=== PATIENT | female | born 1955 | race Caucasian/White ===

== ENCOUNTER → 2020-07-29 | Outpatient (CLI) | payer BC ==
--- NOTE | 2020-07-29 12:02 | BD ---
EXAMINATION TYPE: Axial Bone Density DATE OF EXAM: 07/29/2020 COMPARISON: NONE CLINICAL HISTORY: Postmenopausal female. Height: 64.5 IN Weight: 204 LBS RISK FACTORS HISTORY OF: Active: YES Diet low in dairy products/other sources of calcium: YES Postmenopausal woman: AGE 49 Take estrogen and/or progesterone medications: NOT NOW How long: TOOK CONTROL FOR 5 YEARS MEDICATIONS: Additional Medications: MULTI VIT, METFORMIN, AMARYL, CRESTOR, HYGROTON, JARDIAN(DIABETES MED) EXAM MEASUREMENTS: Bone mineral densitometry was performed using the [employer]. Bone mineral density as measured about the Lumbar spine is: ----- L1-L4(G/cm2): 1.509 T Score Values are as follows: ----- L2: 1.9 ----- L3: 3.8 ----- L4: 2.9 ----- L1-L4: 2.7 Bone mineral density BASELINE Bone mineral density about the R hip (g/cm2): 1.175 Bone mineral density about the L hip (g/cm2): 1.098 T Score values are as follows: -----R Neck: 1.0 -----L Neck: 0.4 -----R Total: 2.4 -----L Total: 2.0 Bone mineral density BASELINE IMPRESSION: Osteopenia (T Score between -2.5 and -1). There is slightly increased risk of fracture and the patient may be considered for treatment. Re-Screen 2-5 years. NOTE: T-SCORE=SD OF THE YOUNG ADULT MEAN.
--- NOTE | 2020-07-29 14:23 | MM ---
Reason for exam: screening (asymptomatic). Last mammogram was performed 1 year and 4 months ago. History: Patient is postmenopausal. Family history of breast cancer in mother at age 57 and breast cancer in maternal aunt at age 57. Benign excisional biopsy of the right breast. Took hormonal contraceptives for 5 years. Physical Findings: A clinical breast exam by your physician is recommended on an annual basis and results should be correlated with mammographic findings. MG 3D Screening Mammo W/Cad Bilateral CC and MLO view(s) were taken. Prior study comparison: April 11, 2019, mammogram, performed at [facility]. July 12, 2018, mammogram, performed at [facility]. April 12, 2018, mammogram, performed at [facility]. March 13, 2018, mammogram, performed at [facility]. There are scattered fibroglandular densities. There are benign appearing round calcifications bilaterally. Previous mammotome biopsy in the right breast at distortion right lower inner quadrant. 3mm group of indistinct calcifications in the left breast slight inner middle depth on MLO 42/87. This finding is changed when compared with previous exams. ASSESSMENT: Incomplete: need additional imaging evaluation, BI-RAD 0 RECOMMENDATION: Special view mammogram of the left breast. [facility] will attempt to contact patient to return for supplemental views.
== END | disposition home or self-care (01) ==
LOC: RADMAMWWP 07:53
PROVIDERS: ATTEND Obstetrics & Gynecology
DX: Z12.31 Encounter for screening mammogram for malignant neoplasm of breast (principal); Z13.820 Encounter for screening for osteoporosis; Z78.0 Asymptomatic menopausal state
CPT/HCPCS: 77063; 77067; 77080

== ENCOUNTER → 2020-08-05 | Outpatient (CLI) | payer BC ==
--- NOTE | 2020-08-06 14:42 | MM ---
Reason for exam: additional evaluation requested from abnormal screening. Last mammogram was performed less than 1 month ago. History: Patient is postmenopausal. Family history of breast cancer in mother at age 57 and breast cancer in maternal aunt at age 57. Benign excisional biopsy of the right breast, 2018. Took hormonal contraceptives for 5 years. Physical Findings: Nurse did not find any significant physical abnormalities on exam. MG 3D Work Up W/Cad LT CC with magnification, LM with magnification, and LM view(s) were taken of the left breast. Prior study comparison: July 29, 2020, bilateral MG 3d screening mammo w/cad. April 11, 2019, mammogram, performed at [facility]. There are scattered fibroglandular densities. There is a 3mm grouping of fine heterogeneous calcifications left upper inner breast. These results were verbally communicated with the patient and result sheet given to the patient on 08/05/20. ASSESSMENT: Suspicious, BI-RAD 4 RECOMMENDATION: Stereotactic core biopsy of the left breast. Called Dr. Arias's office with mammographic findings and has scheduled an appointment for the patient for 08/27/20 at 12:[address] Hernandez. Biopsy scheduled for 08/28/20 at 8:00. PRELIMINARY REPORT CALLED AND FAXED TO DR. HERNANDEZ ON 08/06/20.
== END | disposition home or self-care (01) ==
LOC: RADMAMWWP 08:56
PROVIDERS: ATTEND Obstetrics & Gynecology
DX: R92.1 Mammographic calcification found on diagnostic imaging of breast (principal); Z78.0 Asymptomatic menopausal state; Z80.3 Family history of malignant neoplasm of breast
CPT/HCPCS: 77061; 77065

== ENCOUNTER → 2020-08-27 | Outpatient (CLI) | payer BC ==
[2020-08-27 12:14] VITALS: BP 139/83; PULSE 76; RESP 18; TEMP 98.6
--- NOTE | 2020-08-27 12:47 | P.GSHP ---
History of Present Illness H&P Date: 08/27/20 Chief Complaint: Abnormal left breast mammogram Shannon is a 64 -year-old white female seen in consultation for Dr. Otero regarding a mammographic abnormality in her left breast. This was a routine screening mammogram. The patient does not feel any lumps masses or nodules in either breast. She is not complaining of any recent breast trauma or infection. She had right breast core biopsy done in [place] three years ago which was benign. The patient has had genetic testing done in the past secondary to her mother having had breast cancer and she was told her genetic testing was negative. This was done approximately 3 years ago. Caffiene: pop/iced tea daily nicotine: none chocolate: weekly hormones: BCP: 5 years in past none now Family History: mother: breast cancer dx. at 57 breast cancer; colon cancer in 80's maternal aunt: of breast cancer at 57 maternal aunts (2): cervical cancer maternal uncle: lung cancer Hormonal History: menarche: 13 , breast fed: yes, age at first : 28 menopause: 51 BCP: 5 years hormones: none Surgical history: Cholecystectomy Medical history: Diabetes high cholesterol Osteopenia Social history: Nicotine: Negative alcohol: Negative Drugs: none - Constitutional Constitutional: Denies chills, Denies fever - EENT Comment: bilateral cataracts Eyes: denies blurred vision Ears: deny: decreased hearing, tinnitus Ears, nose, mouth and throat: Denies headache, Denies sore throat - Breasts Breasts: bilateral: as per HPI - Cardiovascular Cardiovascular: Denies chest pain, Denies shortness of breath - Respiratory Comment: history of TB at 19, stayed at [facility] for 6 weeks Respiratory: Denies cough, Denies 7 - Gastrointestinal Comment: colonoscopy 2020: no polyps Gastrointestinal: Denies abdominal pain, Denies diarrhea, Denies nausea, Denies vomiting - Genitourinary (Female) Genitourinary: Reports kidney stones - Menstruation Menstruation: Reports postmenopausal - Musculoskeletal Musculoskeletal: Denies myalgias - Integumentary Integumentary: Denies pruritus, Denies rash - Neurological Neurological: Denies numbness, Denies weakness - Psychiatric Psychiatric: Denies anxiety, Denies depression - Endocrine Endocrine: Denies fatigue, Denies weight change - Hematologic/Lymphatic Comment: none - Allergic/Immunologic Allergic/Immunologic: Reports as per HPI Past Medical History History of Any Multi-Drug Resistant Organisms: None Reported Smoking Status: Never smoker Medications and Allergies Home Medications Medication Instructions Recorded Confirmed Type Chlorthalidone [Hygroton] 50 mg PO DAILY 08/19/20 08/27/20 History Empagliflozin [Jardiance] 25 mg PO DAILY 08/19/20 08/27/20 History Glimepiride [Amaryl] 2 mg PO BID 08/19/20 08/27/20 History Risedronate Sodium 5 mg PO WEEKLY 08/19/20 08/27/20 History Rosuvastatin [Crestor] 10 mg PO DAILY 08/19/20 08/27/20 History metFORMIN HCL 1,000 mg PO BID 08/19/20 08/27/20 History Inulin/Chromium Picolinate [Fiber 1 each PO HS 08/27/20 08/27/20 History Gummies Chew] Allergies Allergy/AdvReac Type Severity Reaction Status Date / Time No Known Allergies Allergy Verified 08/27/20 12:15 Surgical - Exam Vital Signs Temp Pulse Resp BP Pulse Ox 98.6 F 76 18 139/83 98 08/27/20 12:12 08/27/20 12:12 08/27/20 12:12 08/27/20 12:12 08/27/20 12:12 BMI 33.3 - General well developed, well nourished, no distress - Eyes normal ocular movement - ENT no hearing loss, no congestion - Neck trachea midline - Respiratory normal respiratory effort, clear to auscultation - Cardiovascular Rhythm: regular Heart Sounds: normal: S1, S2 - Abdomen Abdomen: soft, non tender, no guarding, no rigid, no rebound - Integumentary normal turgor; patient has multiple nevi in the area of concern was noted in the mid right back - Neurologic no disoriented, no combative - Musculoskeletal normal gait - Psychiatric oriented to time, oriented to person, oriented to place, speech is normal, memory intact Breast exam: BRA: 42C inspection: Bilateral grade 3 ptosis Palpation: Right breast: Multi-positional exam fibrocystic changes no dominant masses or nodules of concern Right axilla: No adenopathy of concern Left breast: Multi-positional exam fibrocystic changes, no dominant masses or nodules of concern Left axilla: No adenopathy of concern Results Mammogram was reviewed with Dr. Kostas, area of microcalcification left breast for which stereotactic core biopsy is recommended Assessment and Plan Assessment: Impression: Diabetes high cholesterol Osteopenia Microcalcifications of concern left breast Fibrocystic breast changes Positive family history of breast cancer Plan: 1. Left breast stereotactic core biopsy 2. Have requested the patient bring her genetic testing results for us to evaluate Cc: Dr. Otero, Prior Risk and benefits of stereotactic core biopsy discussed with the patient. She understands and wishes to proceed. Risks include but are not limited to bleeding, infection, reaction to the anesthetic. The area were not adequately sampled then further testing may be necessary.
== END ==
LOC: WWCWWP 11:58
PROVIDERS: ATTEND Surgery
DX: N60.12 Diffuse cystic mastopathy of left breast (principal); E11.9 Type 2 diabetes mellitus without complications; E78.00 Pure hypercholesterolemia, unspecified; M85.80 Other specified disorders of bone density and structure, unspecified site; Z80.3 Family history of malignant neoplasm of breast; Z79.84 Long term (current) use of oral hypoglycemic drugs

== ENCOUNTER → 2020-08-28 | Day surgery (SDC) | payer BC ==
[2020-08-28 07:12] VITALS: RESP 16
--- NOTE | 2020-08-28 08:47 | P.PCN ---
Date of Procedure: 08/28/20 Preoperative Diagnosis: Microcalcifications of concern left breast upper inner quadrant Postoperative Diagnosis: Same Procedure(s) Performed: Stereotactic core biopsy left breast Anesthesia: local Surgeon: Roxann Hernandez Pathology: other (Breast tissue with microcalcifications of concern contained in specimen) Condition: stable Disposition: same day Indications for Procedure: Microcalcifications of concern left breast upper inner quadrant Operative Findings: Radiographic specimen reveals microcalcifications of concern Description of Procedure: Shannon is a 64-year-old white female who was noted to have microcalcifications of concern in her left breast in the upper inner quadrant. Recommendation for stereotactic core biopsy was made. Risks and benefits of the procedure were discussed with the patient. Risks include but are not limited to bleeding, infection, reaction to the anesthetic. Alternatives such as watchful waiting or open resection were considered but not recommended. The patient agreed to the procedure. The patient was brought to the stereotactic core biopsy room. She was positioned prone on the Lo-rad table. A pharmaceutical scientist film was obtained using a medial to lateral approach. The area of concern was identified. The lesion was targeted. The breast was prepped using Betadine. 20 mL of 1% lidocaine were used to anesthetize the area of concern. A 9-gauge vacuum-assisted core rotating biopsy needle was driven to the correct coordinates. Pre-fire films were obtained. The needle was noted to be in the correct location. The needle was fired. Post fire films were obtained. The needle was noted to be in the correct location. Specimens were obtained from the 9 to 3 o'clock position with 3 specimens at 12:00. A total of 9 specimens were obtained. Radiograph of the specimen revealed that the microcalcifications of concern had been adequately sampled. A tri kacie bowtie marker was placed. This was noted to be in the correct location radiographically. The patient tolerated the procedure in stable condition. The specimen was sent for pathology. The patient will follow-up with Dr. Singletary next week.
[2020-08-28 08:48] VITALS: BP 126/81; PULSE 71; TEMP 98.6
--- NOTE | 2020-08-28 10:18 | MM ---
EXAMINATION TYPE: MG stereo VAD BX LT DATE OF EXAM: 08/28/2020 COMPARISON: NONE CLINICAL HISTORY: Stereotactic guided biopsy for calcification of the left breast TECHNIQUE: Stereotactic guided core biopsy of left breast. FINDINGS: The procedure of stereotactic guided core biopsy was explained to the patient. Benefits, alternatives, and risks were discussed. An informed consent was then obtained. [facility]. Shortness pathway was cc approach. I performed the localization, then surgeon, Dr. Hayder Hwang performed the remainder of the procedure. A vacuum assisted biopsy gun was used to obtain multiple core samples. The patient tolerated the procedure well without any immediate complication. The patient was kept in the radiology department for short stay after the procedure and then discharged home in stable condition. Targeted calcifications are identified in specimen mammogram. Post biopsy mammogram shows the clip to appear in satisfactory position relative to the targeted area of concern on the preprocedure images. IMPRESSION: SUCCESSFUL, UNCOMPLICATED STEREOTACTIC GUIDED CORE BIOPSY OF AREA OF CONCERN IN THE Left BREAST, FULL PATHOLOGY RESULTS TO FOLLOW. Pathology Results: Benign LEFT BREAST, STEREOTACTIC CORE BIOPSY: Fibroadenomatoid hyperplasia with calcifications in a background of fibrocystic changes including columnar cell change and mild usual type ductal hyperplasia. Recommendation Follow up mammogram of the left breast in 6 months. JAYMED
== END ==
LOC: RADMAMWWP 06:59
PROVIDERS: ATTEND Surgery
DX: N60.12 Diffuse cystic mastopathy of left breast (principal); N62 Hypertrophy of breast; R92.1 Mammographic calcification found on diagnostic imaging of breast; R92.0 Mammographic microcalcification found on diagnostic imaging of breast
CPT/HCPCS: 88305; 19081; A4648; J2001

== ENCOUNTER → 2020-09-03 | Outpatient (CLI) | payer BC ==
[2020-09-03 11:34] VITALS: BP 146/88; PULSE 74; RESP 16; TEMP 98.3
--- NOTE | 2020-09-03 11:42 | P.PN ---
Subjective Progress Note Date: 09/03/20 Principal diagnosis: fibrocystic breast changes Shannon is a 64 year old white female status post stereotactic core biopsy and [id number]. This was felt to be benign concordant it showed fibroadenomatoid hyperplasia with calcifications. The patient tolerated the procedure with no difficulty. Objective - Vital Signs Vital signs: Vital Signs Temp 98.3 F 09/03/20 11:23 Pulse 74 09/03/20 11:23 Resp 16 09/03/20 11:23 BP 146/88 09/03/20 11:23 Pulse Ox 95 09/03/20 11:23 Intake & Output 09/02/20 09/03/20 09/03/20 18:59 06:59 18:59 Weight 90.718 kg - Constitutional General appearance: Present: cooperative - EENT Eyes: Present: EOMI - Neck Neck: Present: normal ROM - Respiratory Respiratory: bilateral: CTA - Cardiovascular Heart sounds: normal: S1, S2 - Integumentary Integumentary Comment(s): Biopsy site right breast clean and dry no evidence of hematoma or infection Assessment and Plan Assessment: Dress[place]. Patient status post left prostatectomy core biopsy pathology benign Plan: 1. Repeat left breast mammogram in 6 months with physician exam at that time CC: Dr. Russell Gusman, Dr. Otero
== END ==
LOC: WWCWWP 11:15
PROVIDERS: ATTEND Surgery
DX: Z09 Encounter for follow-up examination after completed treatment for conditions other than malignant neoplasm (principal); Z90.79 Acquired absence of other genital organ(s)

== ENCOUNTER → 2021-02-01 | Outpatient (CLI) | payer BC ==
--- NOTE | 2021-02-01 13:59 | MM ---
Reason for exam: follow-up at short interval from prior study. Last mammogram was performed 6 months ago. History: Patient is postmenopausal. Family history of breast cancer in mother at age 57 and breast cancer in maternal aunt at age 57. Benign MG stereo VAD BX LT of the left breast, August 28, 2020. Benign excisional biopsy of the right breast, 2018. Took hormonal contraceptives for 5 years. Physical Findings: Nurse did not find any significant physical abnormalities on exam. MG Diagnostic Mammo LT w CAD CC and MLO view(s) were taken of the left breast. Prior study comparison: August 05, 2020, left breast MG 3d work up w/cad LT. July 29, 2020, bilateral MG 3d screening mammo w/cad. There are scattered fibroglandular densities. Previous mammotome biopsy in the left breast. No significant new findings when compared with previous films. These results were verbally communicated with the patient and result sheet given to the patient on 02/01/21. ASSESSMENT: Benign, BI-RAD 2 RECOMMENDATION: Return to routine screening mammogram schedule for both breasts. Back on schedule.
== END | disposition home or self-care (01) ==
LOC: RADMAMWWP 13:04
PROVIDERS: ATTEND Surgery
DX: R92.8 Other abnormal and inconclusive findings on diagnostic imaging of breast (principal); Z78.0 Asymptomatic menopausal state; Z80.3 Family history of malignant neoplasm of breast
CPT/HCPCS: 77065

== ENCOUNTER → 2021-02-04 | Outpatient (CLI) | payer BC ==
[2021-02-04 10:56] VITALS: BP 136/85; PULSE 98; RESP 16; TEMP 98.1
--- NOTE | 2021-02-04 11:20 | P.PN ---
Subjective Progress Note Date: 02/04/21 Principal diagnosis: Fibrocystic breast changes Shannon is a 65 -year-old white female seen initially in consultation for Dr. Otero regarding a mammographic abnormality in her left breast. This was on a routine screening mammogram. The patient did not feel any lumps masses or nodules in either breast. She was not complaining of any recent breast trauma or infection. She had right breast core biopsy done in [place] in the past which was benign. The patient has had genetic testing done in the past secondary to her mother having had breast cancer and she was told her genetic testing was negative. This was done abourt years ago. She underwent a left breast stero biopsy on 08-28-20 which was benign. A repeat left breast mammogram was done on 02-01-21 which was BIRAD 2. Is not complaining of any lumps masses or nodules in either breast. Caffiene: pop/iced tea daily nicotine: none chocolate: weekly hormones: BCP: 5 years in past none now Family History: mother: breast cancer dx. at 57 breast cancer; colon cancer in 80's maternal aunt: of breast cancer at 57 maternal aunts (2): cervical cancer maternal uncle: lung cancer Hormonal History: menarche: 13 , breast fed: yes, age at first : 28 menopause: 51 BCP: 5 years hormones: none Surgical history: Cholecystectomy Medical history: Diabetes high cholesterol Osteopenia Social history: Nicotine: Negative alcohol: Negative Drugs: none - Constitutional Constitutional: Denies chills, Denies fever - EENT Comment: bilateral cataracts Eyes: denies blurred vision Ears: deny: decreased hearing, tinnitus Ears, nose, mouth and throat: Denies headache, Denies sore throat - Breasts Breasts: bilateral: as per HPI - Cardiovascular Cardiovascular: Denies chest pain, Denies shortness of breath - Respiratory Comment: history of TB at 19, stayed at for 6 weeks Respiratory: Denies cough, - Gastrointestinal Comment: colonoscopy 2020: no polyps Gastrointestinal: Denies abdominal pain, Denies diarrhea, Denies nausea, Denies vomiting - Genitourinary (Female) Genitourinary: Reports kidney stones - Menstruation Menstruation: Reports postmenopausal - Musculoskeletal Musculoskeletal: Denies myalgias - Integumentary Integumentary: Denies pruritus, Denies rash - Neurological Neurological: Denies numbness, Denies weakness - Psychiatric Psychiatric: Denies anxiety, Denies depression - Endocrine Endocrine: Denies fatigue, Denies weight change - Hematologic/Lymphatic Comment: none - Allergic/Immunologic Allergic/Immunologic: Reports as per HPI Objective - Vital Signs Vital signs: Vital Signs Temp 98.1 F 02/04/21 10:49 Pulse 98 02/04/21 10:49 Resp 16 02/04/21 10:49 BP 136/85 02/04/21 10:49 Pulse Ox Intake & Output 02/03/21 02/04/21 02/04/21 18:59 06:59 18:59 Weight 83.007 kg - Exam BMI 30.5 - Constitutional General appearance: Present: cooperative - EENT Eyes: Present: EOMI ENT: Present: hearing grossly normal - Neck Neck: Present: normal ROM - Respiratory Respiratory: bilateral: CTA - Cardiovascular Heart sounds: normal: S1, S2 - Gastrointestinal General gastrointestinal: Present: soft - Integumentary Integumentary: Present: normal turgor - Musculoskeletal Musculoskeletal: Present: gait normal - Psychiatric Psychiatric: Present: A&O x's 3, appropriate affect, intact judgment & insight - Additional findings Additional findings: Breast Exam: BRA: 42C inspection: bilateral grade 3 ptosis palpation: right breast: Positional exam fibrocystic changes no dominant masses or nodules of concern Right axilla: No adenopathy of concern Left breast: Multi-positional exam fibrocystic changes no dominant masses or nodules of concern Left axilla: No adenopathy of concern Assessment and Plan Assessment: Impression: Fibrocystic breast changes Recent left breast mammogram benign BIRADS 2 Plan: Bilateral mammogram in 6 months with physician exam at that time CC: Dr. Gusman
== END ==
LOC: WWCWWP 10:38
PROVIDERS: ATTEND Surgery
DX: N60.12 Diffuse cystic mastopathy of left breast (principal); E11.9 Type 2 diabetes mellitus without complications; E78.00 Pure hypercholesterolemia, unspecified; Z79.84 Long term (current) use of oral hypoglycemic drugs; Z79.4 Long term (current) use of insulin; Z79.899 Other long term (current) drug therapy

== ENCOUNTER → 2021-11-04 | Outpatient (CLI) | payer BC, MEDICARE ==
[2021-11-04 11:45] VITALS: BP 155/78; PULSE 79; RESP 16; TEMP 97.7
--- NOTE | 2021-11-04 12:01 | P.PN ---
Subjective Progress Note Date: 11/04/21 Principal diagnosis: fibrocystic breast disease Fibrocystic breast changes Shannon is a 66 -year-old white female seen initially in consultation for Dr. Otero regarding a mammographic abnormality in her left breast. This was on a routine screening mammogram. The patient did not feel any lumps masses or nodules in either breast. She was not complaining of any recent breast trauma or infection. She had right breast core biopsy done in [place] in the past which was benign. The patient has had genetic testing done in the past secondary to her mother having had breast cancer and she was told her genetic testing was negative. This was done about 31/2 years ago. She underwent a left breast stero biopsy on 08-28-20 which was benign. A repeat left breast mammogram was done on 02-01-21 which was BIRAD 2. Her most recent mammogram was on 10-11-21 which was personally reviewed. This was BIRAD 2. She is not complaining of any lumps masses or nodules in either breast. Risk evaluation revealed a five-year risk of 4.9%. I discussed this with the patient and she has declined chemoprevention at this time. Caffiene: pop/iced tea daily nicotine: none chocolate: weekly hormones: BCP: 5 years in past none now Family History: mother: breast cancer dx. at 57 breast cancer; colon cancer in 80's maternal aunt: of breast cancer at 57 maternal aunts (2): cervical cancer maternal uncle: lung cancer Hormonal History: menarche: 13 , breast fed: yes, age at first : 28 menopause: 51 BCP: 5 years hormones: none Surgical history: Cholecystectomy Medical history: Diabetes high cholesterol Osteopenia Social history: Nicotine: Negative alcohol: Negative Drugs: none - Constitutional Constitutional: Denies chills, Denies fever - EENT Comment: bilateral cataracts Eyes: denies blurred vision Ears: deny: decreased hearing, tinnitus Ears, nose, mouth and throat: Denies headache, Denies sore throat - Breasts Breasts: bilateral: as per HPI - Cardiovascular Cardiovascular: Denies chest pain, Denies shortness of breath - Respiratory Comment: history of TB at 19, stayed at [facility] for 6 weeks Respiratory: Denies cough, - Gastrointestinal Comment: colonoscopy 2020: no polyps Gastrointestinal: Denies abdominal pain, Denies diarrhea, Denies nausea, Denies vomiting - Genitourinary (Female) Genitourinary: Reports kidney stones - Menstruation Menstruation: Reports postmenopausal - Musculoskeletal Musculoskeletal: Denies myalgias - Integumentary Integumentary: Denies pruritus, Denies rash - Neurological Neurological: Denies numbness, Denies weakness - Psychiatric Psychiatric: Denies anxiety, Denies depression - Endocrine Endocrine: Denies fatigue, Denies weight change - Hematologic/Lymphatic Comment: none - Allergic/Immunologic Allergic/Immunologic: Reports as per HPI Objective - Vital Signs Vital signs: Vital Signs Temp 97.7 F 11/04/21 11:42 Pulse 79 11/04/21 11:42 Resp 16 11/04/21 11:42 BP 155/78 11/04/21 11:42 Pulse Ox 97 11/04/21 11:42 FiO2 Intake & Output 11/03/21 11/04/21 11/04/21 18:59 06:59 18:59 Weight 86.183 kg - Exam BMI: 31.6 - Constitutional General appearance: Present: cooperative - EENT Eyes: Present: EOMI ENT: Present: hearing grossly normal - Neck Neck: Present: normal ROM - Respiratory Respiratory: bilateral: CTA - Cardiovascular Rhythm: regular Heart sounds: normal: S1, S2 - Gastrointestinal General gastrointestinal: Present: soft - Integumentary Integumentary: Present: normal turgor - Musculoskeletal Musculoskeletal: Present: gait normal - Psychiatric Psychiatric: Present: A&O x's 3, appropriate affect, intact judgment & insight - Additional findings Additional findings: Breast Exam: Bra: 40B Inspection: Bilateral grade 3 ptosis Palpation: Right breast: Multi-positional exam fibrocystic changes no dominant masses or nodules of concern Right axilla: No adenopathy of concern Left breast: Multiple positional exam fibrocystic changes no dominant masses or nodules of concern Left axilla: No adenopathy of concern Assessment and Plan Assessment: Impression: Recent bilateral mammogram [id number] benign BIRADS 2 Sherry five-year model risk for 0.9%/we have discussed chemoprevention and patient declined Fibrocystic changes on breast exam Plan: Bilateral mammogram in 1 year with physician exam at that time Patient to follow up sooner any questions or concerns CC: DR. Gusman
== END ==
LOC: WWCWWP 11:36
PROVIDERS: ATTEND Surgery
DX: N60.11 Diffuse cystic mastopathy of right breast (principal); N60.12 Diffuse cystic mastopathy of left breast; E11.9 Type 2 diabetes mellitus without complications; E78.00 Pure hypercholesterolemia, unspecified; M85.80 Other specified disorders of bone density and structure, unspecified site

== ENCOUNTER → 2022-12-14 | Outpatient (CLI) | payer MEDICARE, BC ==
--- NOTE | 2022-12-14 23:33 | BD ---
EXAMINATION TYPE: Axial Bone Density DATE OF EXAM: 12/14/2022 CLINICAL HISTORY: 67 years old Female. ICD-10 CODE: M85.9 MENOPAUSAL Height: 64.2 in Weight: 208 lbs RISK FACTORS HISTORY OF: Active: yes Diet low in dairy products/other sources of calcium: yes Postmenopausal woman: age 48 MEDICATIONS: Additional Medications: multi vit, diabetes meds, cholesterol meds, blood pressure meds EXAM MEASUREMENTS: Bone mineral densitometry was performed using the [employer] System. Bone mineral density as measured about the Lumbar spine is: ----- L1-L4(G/cm2): 1.586 T Score Values are as follows: ----- L1: 2.8 ----- L2: 2.8 ----- L3: 4.8 ----- L4: 3.1 ----- L1-L4: 3.1 Z Score Values are as follows: ----- L1: 3.4 ----- L2: 3.4 ----- L3: 5.4 ----- L4: 3.7 ----- L1-L4: 4.0 Bone mineral density has: Increased 1.6% since study of: 07/29/2020 Bone mineral density about the R hip (g/cm2): 1.314 Bone mineral density about the L hip (g/cm2): 1.272 T Score values are as follows: -----R Neck: 1.1 -----L Neck: 0.3 -----R Total: 2.4 -----L Total: 2.1 Z Score values are as follows: -----R Neck: 2.0 -----L Neck: 1.1 -----R Total: 3.0 -----L Total: 2.6 Bone mineral density has: Increased 0.8% since study of: 07/29/2020 FRAX%s: The graph provided illustrates a 6.0% chance for a major osteoporotic fx and a 0.2% chance fo r the hips probability for fx in 10 years time. IMPRESSION: Normal (Values between +1 and -1 indicate normal bone mass). Consider repeating this study in 5 year s or sooner if there is some new clinical indication. NOTE: T-SCORE=SD OF THE YOUNG ADULT MEAN.
--- NOTE | 2022-12-15 09:40 | MM ---
Reason for Exam: Screening (asymptomatic). Last mammogram was performed 1 year(s) and 2 month(s) ago. Patient History: Menarche at age 13. First Full-Term at age 28. Postmenopausal. Patient has history of breast feeding. Patient used Hormonal Contraceptives for 5 years. 2018, Benign Excisional Biopsy on the right side. 08/28/2020, Benign Core Biopsy on the left side. Maternal aunt had breast cancer, age 57. Mother had breast cancer, age 57. Risk Values: Sherry 5 year model risk: 4.9%. NCI Lifetime model risk: 16.8%. Prior Study Comparison: 08/05/2020 Left Diagnostic Mammogram, [facility]. 02/01/2021 Left Diagnostic Mammogram, [facility]. 10/11/2021 Bilateral MG 3D screening mammo w/cad, [facility]. Tissue Density: The breast tissue is heterogeneously dense. This may lower the sensitivity of mammography. Findings: Analyzed By CAD. Bilateral breast biopsy clips. There is no suspicious group of microcalcifications or new suspicious mass. Overall Assessment: Benign, BI-RAD 2 Management: Screening Mammogram of both breasts in [address] [facility] will attempt to contact patient to return for supplemental views and ultrasound if indicated. Patient should continue monthly self-breast exams. A clinical breast exam by your physician is recommended on an annual basis. This exam should not preclude additional follow-up of suspicious palpable abnormalities. Note on Sherry scores and lifetime risk: 1. A Sherry score greater than 3% is considered moderate risk. If this is the case, consider specialist referral to assess eligibility for a risk reducing agent. 2. If overall lifetime risk for the development of breast cancer is 20% or higher, the patient may qualify for future screening with alternating mammogram and breast MRI. Electronically signed and approved by: Frederick Vang DO
== END | disposition home or self-care (01) ==
LOC: RADBDWWP 12:39
PROVIDERS: ATTEND Obstetrics & Gynecology
DX: Z12.31 Encounter for screening mammogram for malignant neoplasm of breast (principal); M85.9 Disorder of bone density and structure, unspecified; Z78.0 Asymptomatic menopausal state; Z80.3 Family history of malignant neoplasm of breast
CPT/HCPCS: 77063; 77067; 77080

== ENCOUNTER → 2023-12-18 | Outpatient (CLI) | payer MEDICARE, BC ==
--- NOTE | 2023-12-19 09:01 | MM ---
Reason for Exam: Screening (asymptomatic). Last screening mammogram was performed 12 month(s) ago. Patient History: Menarche at age 13. First Full-Term at age 28. Postmenopausal. Patient has history of breast feeding. Patient used Hormonal Contraceptives for 5 years. 2018, Benign Excisional Biopsy on the right side. 08/28/2020, Benign Core Biopsy on the left side. Maternal aunt had breast cancer, age 57. Mother had breast cancer, age 57. Risk Values: Sherry 5 year model risk: 5.0%. NCI Lifetime model risk: 16.2%. Prior Study Comparison: 02/01/2021 Left Diagnostic Mammogram, [facility]. 10/11/2021 Bilateral MG 3D screening mammo w/cad, [facility]. 12/14/2022 Bilateral MG 3D screening mammo w/cad, [facility]. Tissue Density: There are scattered areas of fibroglandular density. Findings: Analyzed By CAD. Right breast: There is no suspicious group of microcalcifications or new suspicious mass. Left breast: There is no suspicious group of microcalcifications or new suspicious mass. Overall Assessment: Negative, BI-RAD 1 Management: Screening Mammogram of both breasts in [address] [facility] will attempt to contact patient to return for supplemental views and ultrasound if indicated. Patient should continue monthly self-breast exams. A clinical breast exam by your physician is recommended on an annual basis. This exam should not preclude additional follow-up of suspicious palpable abnormalities. Note on Sherry scores and lifetime risk: 1. A Sherry score greater than 3% is considered moderate risk. If this is the case, consider specialist referral to assess eligibility for a risk reducing agent. 2. If overall lifetime risk for the development of breast cancer is 20% or higher, the patient may qualify for future screening with alternating mammogram and breast MRI. [facility], , 12/19/2023 8:59 AM. Electronically signed and approved by: Frederick Vang DO
== END | disposition home or self-care (01) ==
LOC: RADMAMWWP 11:24
PROVIDERS: ATTEND Obstetrics & Gynecology
CPT/HCPCS: 77063; 77067